=== PATIENT | male | born 1930 | race Caucasian/White ===

== ENCOUNTER 2016-04-03 16:28 | Inpatient (IN) | payer OTHER, MEDICARE ==
--- NOTE | 2016-04-03 17:19 | PDOC ---
History of Present Illness - General History Source: Patient Exam Limitations: No Limitations - History of Present Illness Initial Comments: 04/03/16 18:16 The patient is a 85 year old male brought via EMS, with a significant past medical history of HTN and AFIB, who presents to the emergency department with spontaneous nose bleed for the past 30 minutes. He notes that the bleeding has been persistent and mostly on his right nostril. He reports that her has been on Coumadin for the past 5 years but has never had a previous episode of bleeding. He states that 2 weeks ago his INR was 2. The patient denies chest pain, shortness of breath, headache and dizziness. Denies fever, chills, nausea, vomit, diarrhea and constipation. Denies dysuria, frequency, urgency and hematuria. Allergies: Penicillins Past surgical history: None reported Social history: No alcohol, tobacco or drug use reported <Shabbir Jolly - Last Filed: 04/03/16 21:52> - General History Source: Patient Exam Limitations: No Limitations - History of Present Illness Initial Comments: 04/08/16 07:35 CORRECTION TO SCRIBE NOTE: Left sided epistaxis, NOT right sided epistaxis. <Andriy Blunt - Last Filed: 04/08/16 07:35> - General Chief Complaint: Nasal Bleeding Stated Complaint: NOSEBLEED Time Seen by Provider: 04/03/16 16:33 Past History <Shabbir Jolly - Last Filed: 04/03/16 21:52> - Past Medical History Cardiac Disorders: Yes (atrial fibrillation) HTN: Yes - Psycho/Social/Smoking Cessation Hx Anxiety: No Suicidal Ideation: No Smoking History: Former smoker Have you smoked in the past 12 months: No If you are a former smoker, when did you quit?: 1970 Information on smoking cessation initiated: No Hx Alcohol Use: No Drug/Substance Use Hx: No Substance Use Type: None <Andriy Blunt - Last Filed: 04/08/16 07:35> - Past Medical History Allergies/Adverse Reactions: Allergies Allergy/AdvReac Type Severity Reaction Status Date / Time Penicillins Allergy Verified 04/03/16 16:42 Home Medications: Ambulatory Orders Atenolol [Tenormin -] 25 mg PO HS 04/03/16 Finasteride [Proscar] 5 mg PO DAILY 04/03/16 Losartan Potassium [Cozaar -] 50 mg PO BID 04/03/16 Pantoprazole Sodium [Protonix -] 40 mg PO HS 04/03/16 Tadalafil [Cialis] 2.5 mg PO DAILY 04/03/16 Tamsulosin HCl [Flomax] 0.4 mg PO BID 04/03/16 Atenolol 37.5 mg PO DAILY 04/04/16 Diltiazem Cd [Cardizem Cd -] 240 mg PO HS 04/04/16 Cephalexin Monohydrate [Keflex -] 500 mg PO TID #6 capsule 04/05/16 Warfarin Na [Coumadin -] 4 mg PO ONCE@1800 #2 tablet 04/05/16 Warfarin Na [Coumadin -] 5 mg PO DAILY #10 mg 04/05/16 Review of Systems - Review of Systems Able to Perform ROS?: Yes Comments:: 04/03/16 18:17 GENERAL/CONSTITUTIONAL: No fever or chills. No weakness. HEAD, EYES, EARS, NOSE AND THROAT: +Nose bleed. No change in vision. No ear pain or discharge. No sore throat. CARDIOVASCULAR: No chest pain or shortness of breath RESPIRATORY: No cough, wheezing, or hemoptysis. GASTROINTESTINAL: No nausea, vomiting, diarrhea or constipation. GENITOURINARY: No dysuria, frequency, or change in urination. MUSCULOSKELETAL: No joint or muscle swelling or pain. No neck or back pain. SKIN: No rash NEUROLOGIC: No headache, vertigo, loss of consciousness, or change in strength/ sensation. ENDOCRINE: No increased thirst. No abnormal weight change HEMATOLOGIC/LYMPHATIC: No anemia, easy bleeding, or history of blood clots. ALLERGIC/IMMUNOLOGIC: No hives or skin allergy. <Shabbir Jolly - Last Filed: 04/03/16 21:52> *Physical Exam - Vital Signs Last Vital Signs Temp Pulse Resp BP Pulse Ox 97.0 F L 99 H 18 161/107 100 04/03/16 16:28 04/03/16 16:28 04/03/16 16:28 04/03/16 16:28 04/03/16 16:28 - Physical Exam Comments: 04/03/16 18:17 GENERAL: Awake, alert, and fully oriented, in no acute distress HEAD: No signs of trauma, normocephalic, atraumatic EYES: PERRLA, EOMI, sclera anicteric, conjunctiva clear ENT: +Left anterior epistaxis, oropharynx with some mild oozing. Auricles normal inspection, hearing grossly normal, nares patent, oropharynx without exudates. NECK: Normal ROM, supple, no lymphadenopathy, JVD, or masses LUNGS: No distress, speaks full sentences, clear to auscultation bilaterally HEART: Regular rate and rhythm, normal S1 and S2, no murmurs, rubs or gallops, peripheral pulses normal and equal bilaterally. ABDOMEN: Soft, nontender, normoactive bowel sounds. No guarding, no rebound. No masses EXTREMITIES: Normal inspection, Normal range of motion, no edema. No clubbing or cyanosis. NEUROLOGICAL: Cranial nerves II through XII grossly intact. Normal speech, normal gait, no focal sensorimotor deficits SKIN: Warm, Dry, normal turgor, no rashes or lesions noted. <Shabbir Jolly - Last Filed: 04/03/16 21:52> - Vital Signs Last Vital Signs Temp Pulse Resp BP Pulse Ox 97.0 F L 99 H 18 161/107 100 04/03/16 16:28 04/03/16 16:28 04/03/16 16:28 04/03/16 16:28 04/03/16 16:28 <Andriy Blunt - Last Filed: 04/08/16 07:35> Heart Score/ECG Review #1 ECG reviewed & interpreted by me at: 21:35 04/03/16 21:45 atrial fibrillation 85 with occasional PVCs, TWI V4-V6, no std/medardo, TWI III, avF , QTC 430 msec <Andriy Blunt - Last Filed: 04/08/16 07:35> ED Treatment Course - LABORATORY CBC & Chemistry Diagram: 04/03/16 20:25 04/03/16 17:05 - ADDITIONAL ORDERS Additional order review: Laboratory Results 04/03/16 04/03/16 17:05 17:05 INR Cancelled PTT (Actin FS) Cancelled Sodium 140 Potassium 4.1 Chloride 106 Carbon Dioxide 27 Anion Gap 7 L BUN 24 H Creatinine 1.2 Creat Clearance w eGFR 57.82 Random Glucose 106 Calcium 9.6 Total Bilirubin 0.8 AST 29 ALT 32 Alkaline Phosphatase 81 Total Protein 7.0 Albumin 4.2 04/03/16 17:05 RBC 4.50 MCV 95.2 MCHC 33.8 RDW 13.8 MPV 9.3 Neutrophils % 68.6 Lymphocytes % 22.0 Monocytes % 8.6 Eosinophils % 0.4 Basophils % 0.4 <Shabbir Jolly - Last Filed: 04/03/16 21:52> - LABORATORY CBC & Chemistry Diagram: 04/05/16 10:15 04/04/16 06:20 <Andriy Blunt - Last Filed: 04/08/16 07:35> Medical Decision Making - Medical Decision Making 04/03/16 21:46 Dr. Wells was called regarding the patient at 9:46pm and a message was left. [phone] <Shabbir Jolly - Last Filed: 04/03/16 21:52> - Medical Decision Making 04/03/16 17:16 A portion of this note was written by my scribe, under my supervision. Vital Signs Temp Pulse Resp BP Pulse Ox 97.0 F L 99 H 18 161/107 100 04/03/16 16:28 04/03/16 16:28 04/03/16 16:28 04/03/16 16:28 04/03/16 16:28 85 year old male with past medical history of CVA, pacemaker, HTN, BPH, on coumadin p/w spontaneous nosebleed (from L nostril) 30 min prior to arrival. Denies trauma. Reports adherent to his coumadin. Denies cp/sob/lightheadedness. Appears to be a left anterior nasal epistaxis. Nasal packing with surgicel was attempted and left in place for 15 minutes. Unable to control the epistaxis. Rhino rocket was placed into the left nostril. Will reassess. 04/03/16 22:06 CBC, BMP 04/03/16 20:25 04/03/16 17:05 CMP Sodium 140 mmol/L (136-145) 04/03/16 17:05 Potassium 4.1 mmol/L (3.5-5.1) 04/03/16 17:05 Chloride 106 mmol/L (98-107) 04/03/16 17:05 Carbon Dioxide 27 mmol/L (21-32) 04/03/16 17:05 Anion Gap 7 (8-16) L 04/03/16 17:05 BUN 24 mg/dL (7-18) H 04/03/16 17:05 Creatinine 1.2 mg/dL (0.7-1.3) 04/03/16 17:05 Creat Clearance w eGFR 57.82 (>60) 04/03/16 17:05 Random Glucose 106 mg/dL (74-106) 04/03/16 17:05 Calcium 9.6 mg/dL (8.5-10.1) 04/03/16 17:05 Total Bilirubin 0.8 mg/dL (0.2-1.0) 04/03/16 17:05 AST 29 U/L (15-37) 04/03/16 17:05 ALT 32 U/L (12-78) 04/03/16 17:05 Alkaline Phosphatase 81 U/L (45-117) 04/03/16 17:05 Creatine Kinase 101 IU/L (39-308) 04/03/16 20:25 Troponin I < 0.02 ng/ml (0.00-0.05) 04/03/16 20:25 Total Protein 7.0 g/dl (6.4-8.2) 04/03/16 17:05 Albumin 4.2 g/dl (3.4-5.0) 04/03/16 17:05 Initially, the Hgb was 14.5. INR ~4. Initially had attempted surgicel but that have failed. A left-sided Rhino Rocket was placed. However, the patient continues to have nasal bleeding. Right Rhino Rocket was placed to assist with the bleeding. However, patient continued to ooze and bleed. Patient swallowed a significant amount of blood. The patient had the left Rhino Rocket removed and cautery was applied with silver nitrate with successful cessation of bleeding. The patient's hemoglobin was repeated and was noted to be 12.0. Patient had 2 large bowel movements with bright red blood which I suspect is from all the amount of bloody swallowed. Given that the patient had bled significantly, decision was made to admit the patient to the hospital. The patient has a history of afib, so will not stop coumadin but will hold for tonight. Empiric antibiotics ordered, azithromycin (keeping in mind the drug to drug interactions and pt's allergies to penicillin). Case was discussed with Dr. Monae who accepts the patient for med/surg observation. Case discussed in detail with admitting physician including history, physical exam and ancillary studies. Admitting physician has assumed care for the patient, will follow all pending diagnostics and will complete the evaluation and treatment. <Andriy Blunt - Last Filed: 04/08/16 07:35> *DC/Admit/Observation/Transfer - Attestations Scribe Attestion: 04/03/16 18:18 Documentation prepared by Shabbir Jolly, acting as medical billing associate for Andriy Blunt MD. <Shabbir Jolly - Last Filed: 04/03/16 21:52> - Discharge Dispostion Admit: Yes <Andriy Blunt - Last Filed: 04/08/16 07:35> Diagnosis at time of Disposition: Epistaxis - Discharge Dispostion Disposition: HOME Condition at time of disposition: Stable - Prescriptions - Referrals
[2016-04-03 17:22] LABS: BASOPHIL 0.4 % (0-2.0); EOSINOPHIL 0.4 % (0-4.5); MCH 32.2 pg (25.7-33.7); MCHC 33.8 g/dl (32.0-35.9); MEAN CELL VOLUME 95.2 fl (80-96); MEAN PLT VOLUME 9.3 fl (7.5-11.1); NEUTROPHILS 68.6 % (42.8-82.8); PLATELET COUNT 200 K/MM3 (134-434); RDW 13.8 % (11.9-15.9); WHITE BLOOD COUNT 10.4 K/mm3 (4.0-10.0)
[2016-04-03 18:00] LABS: ALBUMIN 4.2 g/dl (3.4-5.0); BILIRUBIN,TOTAL 0.8 mg/dL (0.2-1.0); CALCIUM 9.6 mg/dL (8.5-10.1); CREATININE 1.2 mg/dL (0.7-1.3)
[2016-04-03 18:22] LABS: INR 3.99 (0.82-1.09); PROTHROMBIN TIME (PATIENT) 45.1 SEC (9.98-11.88)
[2016-04-03 18:24] LABS: ACTIVATED PTT 42.2 SECONDS (26.9-34.4)
[2016-04-03] MEDS ORDERED: SILVER NITRATE 75% APPLIC STCK 1 PKT EACH TP ONE (18:26)
[2016-04-03] MEDS ORDERED: ACETAMINOPHEN 325 MG TABLET (FP) PO ONE (18:36)
[2016-04-03] MEDS ORDERED: SILVER NITRATE 75% APPLIC STCK 1 PKT EACH ONE (18:41)
[2016-04-03] MEDS ORDERED: ACETAMINOPHEN 325 MG TABLET (FP) ONE (18:42)
[2016-04-03] MEDS ORDERED: RANITIDINE HCL 150 MG TABLET (FP) PO ONE (19:22)
[2016-04-03] MEDS ORDERED: RANITIDINE HCL 150 MG TABLET (FP) ONE (19:36)
[2016-04-03 20:36] LABS: BASOPHIL 0.3 % (0-2.0); EOSINOPHIL 0.2 % (0-4.5); MCH 32.2 pg (25.7-33.7); MCHC 33.7 g/dl (32.0-35.9); MEAN CELL VOLUME 95.7 fl (80-96); NEUTROPHILS 79.8 % (42.8-82.8); PLATELET COUNT 170 K/MM3 (134-434); RDW 13.8 % (11.9-15.9); WHITE BLOOD COUNT 12.7 K/mm3 (4.0-10.0)
[2016-04-03] MEDS ORDERED: SODIUM CHLORIDE 500 ML IV STA (20:53)
[2016-04-03 21:07] LABS: TROPONIN I < 0.02 ng/ml (0.00-0.05)
[2016-04-03] MEDS ORDERED: FAMOTIDINE 20 MG/50 ML IVPB 50 ML IVPB ONE ×2 (21:15→21:31)
[2016-04-03] MEDS ORDERED: METOCLOPRAMIDE HCL INJECTION 10 MG/2 ML VIAL IVPB ONE (21:15)
[2016-04-03] MEDS ORDERED: METOCLOPRAMIDE HCL INJECTION 10 MG/2 ML VIAL ONE (21:31)
[2016-04-03] MEDS ORDERED: AZITHROMYCIN IVPB 500 MG in DEXTROSE 5%-WATER - 250 ML IVPB ONE (21:55)
[2016-04-03] MEDS ORDERED: AZITHROMYCIN IVPB 250 ML IVPB ONE (21:57)
--- NOTE | 2016-04-03 23:06 | HP ---
CHIEF COMPLAINT: Nose Bleed PCP: Dr. Chris Ramirez ([facility]) Dr. Kavon Carr ([facility]) HISTORY OF PRESENT ILLNESS: 85 year old male presented to the ED via EMS with the complaints of nose bleed since this afternoon at 3:30 pm. Patient mentioned he was driving home when he noticed bleeding from his nose suddenly and that it wouldn't stop bleeding. It was so profuse that he had to call 911. Patient has been on Warfarin since many years, 2 weeks ago his INR was around 2. Since admission, patient complaints of abdominal cramps with four episodes of diarrhoea, stool mixed with blood. It was associated with nausea but no vomiting. Denies urinary symptoms. Also complaints of frontal headache, on/off, started since admission. Denies dizziness, blurring of vision, LOC. Patient mentions he had a mechanical fall 2 weeks ago, had a steroid shot on his right shoulder a couple of days ago and has persistent pain over the left shoulder upon movement. In the ED, Nasal packing failed, cautery was tried followed by rhino rocket placement which helped to stop the bleeding. In the course of epistaxis, patient swallowed large volume of blood. Now, the patient is hemodynamically stable and the bleeding has stopped. ER course was notable for: (1) CBC, CMP (2) CXR (3) Nasal packing, cautery, Rhino rocket placement right nostril. Recent Travel: None PAST MEDICAL HISTORY: HTN and AFIB PAST SURGICAL HISTORY: Social History: Smoking: stopped smoking Alcohol: Drinks 1-2glass of wine every night. Drugs: No illicit drug use. Family History: Allergies Penicillins Allergy (Verified 04/03/16 16:42) HOME MEDICATIONS: Medication Instructions Recorded Atenolol [Tenormin -] 25 mg PO DAILY 04/03/16 Diltiazem [Cardizem -] 0 mg PO DAILY 04/03/16 Finasteride [Proscar] 0 mg PO DAILY 04/03/16 Losartan Potassium [Cozaar -] 0 mg PO DAILY 04/03/16 Pantoprazole Sodium [Protonix -] 40 mg PO DAILY 04/03/16 Tadalafil [Cialis] 2.5 mg PO DAILY 04/03/16 Tamsulosin HCl [Flomax] 0.4 mg PO DAILY 04/03/16 Warfarin Na [Coumadin] 5 mg PO DAILY 04/03/16 REVIEW OF SYSTEMS CONSTITUTIONAL: Absent: fever, chills, diaphoresis, generalized weakness, malaise, loss of appetite, weight change HEENT: Absent: rhinorrhea, nasal congestion, throat pain, throat swelling, difficulty swallowing, mouth swelling, ear pain, eye pain, visual changes CARDIOVASCULAR: Absent: chest pain, syncope, palpitations, irregular heart rate, lightheadedness , peripheral edema RESPIRATORY: Absent: cough, shortness of breath, dyspnea with exertion, orthopnea, wheezing, stridor, hemoptysis GASTROINTESTINAL: Present: Abdominal cramps + Absent: abdominal distension, nausea, vomiting, diarrhea, constipation, melena, hematochezia GENITOURINARY: Absent: dysuria, frequency, urgency, hesitancy, hematuria, flank pain, genital pain MUSCULOSKELETAL: Absent: myalgia, arthralgia, joint swelling, back pain, neck pain SKIN: Absent: rash, itching, pallor HEMATOLOGIC/IMMUNOLOGIC: Absent: easy bleeding, easy bruising, lymphadenopathy, frequent infections ENDOCRINE: Absent: unexplained weight gain, unexplained weight loss, heat intolerance, cold intolerance NEUROLOGIC: Absent: headache, focal weakness or paresthesias, dizziness, unsteady gait, seizure, mental status changes, bladder or bowel incontinence PSYCHIATRIC: Absent: anxiety, depression, suicidal or homicidal ideation, hallucinations. PHYSICAL EXAMINATION GENERAL: Patient is lying in bed comfortably in propped up position, Awake, alert, and fully oriented, in no acute distress. HEAD: Normal with no signs of trauma. EYES: EOM intact, no pallor or icterus. EARS, NOSE, THROAT: Ears normal, Rhino rocket placement on the right nostril. Moist mucous membranes. NECK: Normal range of motion,Supple. LUNGS: Breath sounds equal, clear to auscultation bilaterally. No wheezes, and no crackles. No accessory muscle use. HEART: Regular rate and rhythm, normal S1 and S2 without murmur, rub or gallop. ABDOMEN: Soft, tenderness over the suprapubic region +, not distended, normoactive bowel sounds, no guarding, no rebound, no masses. No hepatomegaly or splenomegaly. Per rectal exam: MUSCULOSKELETAL: Normal range of motion at all joints. No bony deformities or tenderness. No CVA tenderness. UPPER EXTREMITIES: 2+ pulses, warm, well-perfused. No cyanosis. No clubbing. Cap refill <2 seconds. No peripheral edema. LOWER EXTREMITIES: 2+ pulses, warm, well-perfused. No calf tenderness. No peripheral edema. NEUROLOGICAL: Cranial nerves II-XII intact. Normal speech. Normal gait. PSYCHIATRIC: Cooperative. Good eye contact. Appropriate mood and affect. SKIN: Warm, dry, normal turgor, multiple ecchymotic areas over the right upper extremities. ASSESSMENT/PLAN: 85 year old male with significant past medical history of HTN, atrial fibrillation presented to the ED via EMS with the complaints of nose bleed since this afternoon at 3:30 pm. # Epistaxis Most likely secondary to drug interaction of warfarin with recent steroid shot over his right shoulder profuse epistaxis, H/H dropped from 14.5/42.9----->12/35.5. Patient asymptomatic In the ED, Nasal packing failed, had to perform nasal cautery followed by rhino rocket placement Patient admitted in Med-surg NPO to rule out GI bleed IV NS @ 42mls/hr On IV Protonix 40mg Daily Type and screen ordered CBC every 6hours. Patient gets rash/swelling with penicillin use, had used 60 years ago as per the patient. Hence, empirically treating with Vancomycin since Rhino rocket placement was done on 04/03/2016 and will be continued for a couple of days. Hold coumadin Resume home meds Zofran PRN for nausea # Atrial fibrillation-rate controlled Warfarin on hold # Hypertension-stable Continue home meds Monitor Vitals # FEN IV NS @ 42mls/hr Electrolytes to be repeated in the am NPO # Prophylaxis For DVT- On SCD's, Heparin not used due to risk on increase in bleeding For GI- On Protonix Illness, Investigation and Plan of care explained to the patient. He verbalized understanding. Case discussed with Dr. Monae. Visit type - Emergency Visit Emergency Visit: Yes ED Registration Date: 04/03/16 Care time: The patient presented to the Emergency Department on the above date and was hospitalized for further evaluation of their emergent condition. - New Patient This patient is new to me today: Yes Date on this admission: 04/04/16 - Critical Care Critical Care patient: No
[2016-04-03] MEDS ORDERED: ONDANSETRON 4 MG/2 ML VIAL IVPB PRN (23:44)
[2016-04-03] MEDS ORDERED: VANCOMYCIN 1 GRAM (PRE-DOCKED) 250 ML IVPB ONE (23:45)
[2016-04-04] MEDS ORDERED: VANCOMYCIN 1 GRAM (PRE-DOCKED) 250 ML IVPB ONE (00:11)
--- NOTE | 2016-04-04 03:46 | PN ---
[id number] the patient. I reviewed the resident's note and discussed the case with the resident. I agree with the resident's findings and plan as documented. SUBJECTIVE: 85 yo M presents with spontaneous nosebleed while driving at 3:30pm. Patient denies trauma and dizziness. 2 days prior had a steroid shot for arm pain s/p fall. Patient denies LOC but has severe ecchymosis on the posterior aspect of the arm going down to the elbow. On eval in ED had profuse epistaxis resistant to rhinal rocket and had to be cauterized. Patient with profuse blood in BM and admission recommended obs due to supratherapeutic INR and to monitor overnight. Patient also reports an associated nausea, diffuse lower abdominal pain rated at an 8/10 and a frontal headache rated a 6/10. The patient reports hematochezia s/p epistaxis. PMHx: AFIB, HTN, BPH Allergies: Penicillin Past surgical history: None reported Social history: No alcohol, tobacco or drug use reported OBJECTIVE: Last Vital Signs Temp Pulse Resp BP Pulse Ox 97.0 F L 99 H 18 161/107 100 04/03/16 16:28 04/03/16 16:28 04/03/16 16:28 04/03/16 16:28 04/03/16 16:28 GENERAL: Awake, alert, and fully oriented, in no acute distress HEENT: Atraumatic. PERRLA, EOMI. Moist mucosa. No JVD. Right nasal rhinal rocket with blood. No active bleeding at this time. Dry blood around left nare. LUNGS: No distress, speaks full sentences, clear to auscultation bilaterally HEART: Regular rate and rhythm, normal S1 and S2, no murmurs, rubs or gallops, peripheral pulses normal and equal bilaterally. ABDOMEN: Soft, nontender, normoactive bowel sounds. No guarding, no rebound. No masses EXTREMITIES: Normal inspection, Normal range of motion, no edema. No clubbing or cyanosis. NEUROLOGICAL: Cranial nerves II through XII grossly intact. Normal speech, normal gait, no focal sensorimotor deficits SKIN: Warm, Dry, normal turgor, no rashes or lesions noted. CBCD WBC 12.7 K/mm3 (4.0-10.0) H 04/03/16 20:25 RBC 3.71 M/mm3 (4.00-5.60) L 04/03/16 20:25 Hgb 12.0 GM/dL (11.7-16.9) D 04/03/16 20:25 Hct 35.5 % (35.4-49) D 04/03/16 20:25 MCV 95.7 fl (80-96) 04/03/16 20:25 MCHC 33.7 g/dl (32.0-35.9) 04/03/16 20:25 RDW 13.8 % (11.9-15.9) 04/03/16 20:25 Plt Count 170 K/MM3 (134-434) 04/03/16 20:25 MPV 9.0 fl (7.5-11.1) 04/03/16 20:25 CMP Sodium 140 mmol/L (136-145) 04/03/16 17:05 Potassium 4.1 mmol/L (3.5-5.1) 04/03/16 17:05 Chloride 106 mmol/L (98-107) 04/03/16 17:05 Carbon Dioxide 27 mmol/L (21-32) 04/03/16 17:05 Anion Gap 7 (8-16) L 04/03/16 17:05 BUN 24 mg/dL (7-18) H 04/03/16 17:05 Creatinine 1.2 mg/dL (0.7-1.3) 04/03/16 17:05 Creat Clearance w eGFR 57.82 (>60) 04/03/16 17:05 Calcium 9.6 mg/dL (8.5-10.1) 04/03/16 17:05 Total Bilirubin 0.8 mg/dL (0.2-1.0) 04/03/16 17:05 AST 29 U/L (15-37) 04/03/16 17:05 ALT 32 U/L (12-78) 04/03/16 17:05 Alkaline Phosphatase 81 U/L (45-117) 04/03/16 17:05 Total Protein 7.0 g/dl (6.4-8.2) 04/03/16 17:05 Albumin 4.2 g/dl (3.4-5.0) 04/03/16 17:05 ASSESSMENT AND PLAN: 1.) Epistaxis with supratherapeutic INR -Hold coumadin -Repeat CBC 6 hours -Type and strain -Consider blood trans if hemoglobin less than 7 Documentation prepared by Mayra Salmeron, acting as medical artist for Amelia Monae M.D. <Amelia Monae - Last Filed: 04/17/16 20:57> Teaching Attending Note Name of Resident: Veronica Melendez
[2016-04-04] MEDS: SODIUM CHLORIDE 1,000 ML IV SCH (04:29)
--- NOTE | 2016-04-04 08:20 | PN ---
Progress Note (short form) - Note Progress Note: ID Full note dictated and discussed with his PMD Dr Perez at [facility] Selected Entries 04/03/16 04/04/16 16:28 07:00 Temperature 97.0 F L Pulse Rate 99 H Pulse Rate [ 115 H Right] Blood Pressure 155/96 [Left Arm] O2 Sat by Pulse 99 Oximetry (%) Weight 165 lb Epistaxis Echymosis Right upper Ext Laboratory Tests 04/03/16 04/03/16 04/03/16 17:05 17:50 20:25 WBC 12.7 H RBC 3.71 L Plt Count 170 INR 3.99 H BUN 24 H Creatinine 1.2 Creat Clearance w eGFR 57.82 Assessment Excessive anticoagulation Atrial fibrillation Epistaxis Plan Prophylactic Keflex 500mg bid 48 hours Kiki CHANDRA Problem List - Problems (1) Epistaxis Code(s): R04.0 - EPISTAXIS (2) Anticoagulation goal of inr 3.0 to 4.0 Code(s): Z51.81 - ENCOUNTER FOR THERAPEUTIC DRUG LEVEL MONITORING Z79.01 - LONGTERM (CURRENT) USE OF ANTICOAGULANTS
[2016-04-04] MEDS ORDERED: TAMSULOSIN HCL 0.4 MG CAP.ER.24H (FP) PO SCH (08:30)
--- NOTE | 2016-04-04 08:49 | PN ---
Teaching Attending Note Name of Resident: Eliza Michael ATTENDING PHYSICIAN STATEMENT I saw and evaluated the patient. I reviewed the resident's note and discussed the case with the resident. I agree with the resident's findings and plan as documented. SUBJECTIVE: Presented for Epistaxis , No further bleed. otherwise comfortable. OBJECTIVE: Vital Signs Temperature 97.0 F L 04/03/16 16:28 Pulse Rate 115 H 04/04/16 07:00 Respiratory Rate 18 04/03/16 16:28 Blood Pressure 155/96 04/04/16 07:00 O2 Sat by Pulse Oximetry (%) 99 04/04/16 07:00 GENERAL: The patient is awake, alert, and fully oriented, in no acute distress. HEAD: Normal with no signs of trauma. EYES: PERRL, extraocular movements intact, right eye positive for blood shot. left eye conjunctiva clear. ENT: Ears normal, nares patent, oropharynx clear without exudates, moist mucous membranes. NECK: Trachea midline, full range of motion, supple. LUNGS: Breath sounds equal, clear to auscultation bilaterally, no wheezes, no crackles, no accessory muscle use. HEART: irregularly irregular with rat eof 115 , S1, S2 positive, rub or gallop. ABDOMEN: Soft, nontender, nondistended, normoactive bowel sounds, no hepatosplenomegaly, no masses. EXTREMITIES: 2+ pulses, warm, well-perfused, no edema. Right shoulder large bruise due to his fall NEUROLOGICAL: Cranial nerves II through XII grossly intact. Normal speech. PSYCH: Normal mood, normal affect. SKIN: Warm, dry, normal turgor, no rashes or lesions noted CBCD WBC 11.8 K/mm3 (4.0-10.0) H 04/04/16 15:00 RBC 3.64 M/mm3 (4.00-5.60) L 04/04/16 15:00 Hgb 11.8 GM/dL (11.7-16.9) 04/04/16 15:00 Hct 34.9 % (35.4-49) L 04/04/16 15:00 MCV 95.8 fl (80-96) 04/04/16 15:00 MCHC 33.9 g/dl (32.0-35.9) 04/04/16 15:00 RDW 13.9 % (11.9-15.9) 04/04/16 15:00 Plt Count 154 K/MM3 (134-434) 04/04/16 15:00 MPV 9.3 fl (7.5-11.1) 04/04/16 15:00 CMP Sodium 143 mmol/L (136-145) 04/04/16 06:20 Potassium 4.1 mmol/L (3.5-5.1) 04/04/16 06:20 Chloride 114 mmol/L (98-107) H 04/04/16 06:20 Carbon Dioxide 21 mmol/L (21-32) D 04/04/16 06:20 Anion Gap 8 (8-16) 04/04/16 06:20 BUN 41 mg/dL (7-18) H D 04/04/16 06:20 Creatinine 0.9 mg/dL (0.7-1.3) D 04/04/16 06:20 Creat Clearance w eGFR > 60 (>60) 04/04/16 06:20 Random Glucose 90 mg/dL (74-106) 04/04/16 06:20 Calcium 8.3 mg/dL (8.5-10.1) L 04/04/16 06:20 Total Bilirubin 0.7 mg/dL (0.2-1.0) 04/04/16 06:20 AST 20 U/L (15-37) D 04/04/16 06:20 ALT 23 U/L (12-78) D 04/04/16 06:20 Alkaline Phosphatase 62 U/L (45-117) D 04/04/16 06:20 Total Protein 5.2 g/dl (6.4-8.2) L D 04/04/16 06:20 Albumin 3.1 g/dl (3.4-5.0) L D 04/04/16 06:20 CARDIAC ENZYMES Creatine Kinase 101 IU/L (39-308) 04/03/16 20:25 Troponin I < 0.02 ng/ml (0.00-0.05) 04/03/16 20:25 Current Medications Generic Name Dose Route Start Last Admin Trade Name Freq PRN Reason Stop Dose Admin Atenolol 25 mg 04/04/16 10:00 04/04/16 11:07 Tenormin - PO 25 mg DAILY MARILYN Administration Cephalexin HCl 500 mg 04/04/16 10:30 04/04/16 18:30 Keflex - PO 04/05/16 22:01 Not Given TID MARILYN Diltiazem HCl 30 mg 04/04/16 10:00 04/04/16 11:05 Cardizem - PO 30 mg DAILY MARILYN Administration Finasteride 5 mg 04/04/16 10:00 04/04/16 11:06 Proscar - PO 5 mg DAILY MARILYN Administration Vancomycin HCl 250 mls @ 250 mls/hr 04/04/16 10:00 Vancomycin (Pre-Docked) IVPB DAILY [facility] Sodium Chloride 1,000 mls @ 42 mls/hr 04/04/16 04:15 04/04/16 04:29 Normal Saline - IV 42 mls/hr ASDIR MARILYN Administration Losartan Potassium 50 mg 04/04/16 10:00 04/04/16 11:06 Cozaar - PO 50 mg DAILY MARILYN Administration Non-Formulary Medication 2.5 mg 04/04/16 10:00 Tadalafil [Cialis] PO DAILY [facility] Ondansetron HCl 4 mg 04/03/16 23:44 Zofran Injection IVPB Q4H PRN NAUSEA AND/OR VOMITING Tamsulosin HCl 0.4 mg 04/04/16 11:45 04/04/16 12:34 Flomax - PO 0.4 mg DAILY@0830 [facility] Administration Medication Instructions Recorded Atenolol [Tenormin -] 25 mg PO HS 04/03/16 Finasteride [Proscar] 5 mg PO DAILY 04/03/16 Losartan Potassium [Cozaar -] 50 mg PO BID 04/03/16 Pantoprazole Sodium [Protonix -] 40 mg PO HS 04/03/16 Tadalafil [Cialis] 2.5 mg PO DAILY 04/03/16 Tamsulosin HCl [Flomax] 0.4 mg PO BID 04/03/16 Warfarin Na [Coumadin] 5 mg PO DAILY 04/03/16 Atenolol 37.5 mg PO DAILY 04/04/16 Diltiazem Cd [Cardizem Cd -] 240 mg PO HS 04/04/16 S/P fall:CT head, no acute bleeding X ray right shoulder and humerus : No fracture ASSESSMENT AND PLAN: 85 year old male with significant past medical history of HTN, atrial fibrillation presented to the ED via EMS with the complaints of nose bleed since yesterday afternoon. # Acute Epistaxis while driving. ENT consult Dr.Tom Otero . -H/H dropped from 14.5/42.9----->11 prophylactic Keflex 500 mg PO BID as per ID # Anemia with Tarry stool most likely due to swallowing his own blood. GI consult Atrial fibrillation-rate controlled on Cardizam continue .Warfarin on hold since supratherapeutic INR Hypertension Continue home meds DVT Prophylaxis: warfarin supratherapeutic INR GI PPX On Protonix
[2016-04-04 08:58] LABS: ALBUMIN 3.1 g/dl (3.4-5.0); ANION GAP 8 (8-16); CALCIUM 8.3 mg/dL (8.5-10.1); CO2 21 mmol/L (21-32); CREATININE 0.9 mg/dL (0.7-1.3); GLUCOSE,RANDOM 90 mg/dL (74-106); SGOT/AST 20 U/L (15-37); SGPT/ALT 23 U/L (12-78)
[2016-04-04 09:00] LABS: ALK PHOS 62 U/L (45-117); BILIRUBIN,TOTAL 0.7 mg/dL (0.2-1.0); TOT PROT 5.2 g/dl (6.4-8.2)
[2016-04-04 09:08] LABS: ACTIVATED PTT 44.9 SECONDS (26.9-34.4)
--- NOTE | 2016-04-04 09:26 | CONS ---
DATE OF CONSULTATION: DATE OF DICTATION: 04/04/2016 This is an 85-year-old male admitted to the emergency room with chief complaint of severe epistaxis which began yesterday afternoon while driving home and was spontaneous. Noted is the fact that the patient has a history of atrial fibrillation and a stroke in the past and has been anticoagulated, with most recent INR around 2; however, his INR here was found to be 4. Several failed efforts were made to control the epistaxis, and ultimately he required a Rhino Rocket placement to help control the bleeding. Because of this, I was asked to see him regarding antibiotics prophylactically, but given a remote history of penicillin allergy with a rash, he was given a dose of vancomycin apparently in the emergency room. He has no fever, shortness of breath, and currently appears quite stable. 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 He saw his primary medical doctor and was referred to an orthopedist several days ago, who apparently injected the right shoulder for inflammation and improvement of pain. He has had no other acute symptoms, denies any headaches, visual complaints, abdominal pain. Mention is made in the emergency room of some abdominal cramping with stool mixed with blood, but currently he does not appear to have any evidence of GI bleeding overtly. PAST MEDICAL HISTORY: Includes BPH, hypertension, atrial fibrillation, status post CVA. HOME MEDICATIONS: Atenolol, diltiazem, Proscar, Cozaar, Protonix, Cialis, Flomax, Coumadin. ALLERGIES: PENICILLIN with a rash 60 years ago. FAMILY HISTORY: Reviewed and noncontributory. SOCIAL HISTORY: Former smoker. 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 No alcohol use. REVIEW OF SYSTEMS: Respiratory: No cough, shortness of breath. Cardiac: No chest pain, palpitations, syncope. Gastroenterology: No abdominal pain currently. No diarrhea, vomiting. Genitourinary: No dysuria, hematuria, urinary frequency. PHYSICAL EXAMINATION: General: He was a pleasant, alert male in no acute distress. Vital Signs: His temperature was 97, pulse 115, blood pressure 155/96, respirations 18. HEENT: Revealed no obvious overt epistaxis at this time. Neck: Supple. Lungs: Clear to P&A. Heart: S1, S2, irregularly irregular rhythm without murmur. Abdomen: Soft, nontender, without hepatosplenomegaly. Extremities: Without clubbing, cyanosis, or edema. Extensive ecchymosis of the right outer upper extremity. LABORATORY: The white count was 12.7, hemoglobin 12, originally 14.5. Platelets of 170, INR of 3.99. BUN 24, creatinine 1.2. Liver enzymes within normal limit. Chest x-ray shows no evidence of acute infiltrate, questionable right perihilar noncalcified nodular opacity. PROBLEM LIST: Severe ecchymosis, contusions to the right arm. ASSESSMENT: Severe epistaxis in the setting of excessive anticoagulation with Coumadin status post placement of a Rhino Rocket for control of epistaxis. Requested that I see him for prophylactic antibiotic. Given 1 g of vancomycin by the emergency room. History of atrial fibrillation. History of cerebrovascular accident in the past, benign prostatic hypertrophy. PLAN: The patient to be admitted. I contacted his primary medical doctor, , as a courtesy to him know that his patient was here. Coumadin has been held. He will be given Keflex 500 mg p.o. b.i.d. for 48 hours for prophylaxis of severe epistaxis. BIJAL JOSUE M.D. [id number]
[2016-04-04 09:54] LABS: INR 4.41 (0.82-1.09)
[2016-04-04] MEDS ORDERED: PANTOPRAZOLE SODIUM 100 ML IVPB SCH (10:00)
[2016-04-04] MEDS ORDERED: dilTIAZem HCL 30 MG TABLET (FP) PO SCH (10:00)
[2016-04-04] MEDS ORDERED: CEPHALEXIN MONOHYDRATE 500 MG CAPSULE (UD) PO SCH (10:00)
[2016-04-04] MEDS: FINASTERIDE 5 MG TABLET (FP) PO SCH (11:06)
[2016-04-04] MEDS: LOSARTAN POTASSIUM 50 MG TABLET (FP) PO SCH (11:06)
[2016-04-04] MEDS: ATENOLOL 25 MG TABLET (FP) PO SCH (11:07)
[2016-04-04] MEDS: CEPHALEXIN MONOHYDRATE 500 MG CAPSULE (UD) PO SCH ×3 (11:13→22:18)
[2016-04-04] MEDS: TAMSULOSIN HCL 0.4 MG CAP.ER.24H (FP) PO SCH (12:34)
[2016-04-04 15:22] LABS: BASOPHIL 0.2 % (0-2.0); MCH 32.5 pg (25.7-33.7); MCHC 33.9 g/dl (32.0-35.9); MEAN CELL VOLUME 95.8 fl (80-96); MEAN PLT VOLUME 9.3 fl (7.5-11.1); NEUTROPHILS 73.9 % (42.8-82.8); PLATELET COUNT 154 K/MM3 (134-434); RDW 13.9 % (11.9-15.9); WHITE BLOOD COUNT 11.8 K/mm3 (4.0-10.0)
--- NOTE | 2016-04-04 15:32 | EKG ---
Test Reason : Blood Pressure : / mmHG Vent. Rate : 083 BPM Atrial Rate : 202 BPM P-R Int : 000 ms QRS Dur : 088 ms QT Int : 366 ms P-R-T Axes : 000 049 -33 degrees QTc Int : 430 ms ATRIAL FIBRILLATION WITH OCCASIONAL ventricular-paced complexes T WAVE ABNORMALITY, CONSIDER LATERAL ISCHEMIA ABNORMAL ECG WHEN COMPARED WITH ECG OF 03-APR-2016 21:31, ELECTRONIC VENTRICULAR PACEMAKER HAS REPLACED ATRIAL FIBRILLATION Confirmed by YAN CHANDRA, KHANG ([id number]) on 04/04/2016 3:31:37 PM Referred By: Confirmed By:KHANG HEREDIA MD
[2016-04-04 15:58] LABS: PROTHROMBIN TIME (PATIENT) 47.4 SEC (9.98-11.88)
--- NOTE | 2016-04-04 16:46 | PN ---
Physical Exam: SUBJECTIVE: Patient seen and examined. OBJECTIVE: Vital Signs Period Temp Pulse Resp BP Sys/Arevalo Pulse Ox Last 24 Hr 98.7 F 112-115 20 155-163/91-96 99 GENERAL: The patient is awake, alert, and fully oriented, in no acute distress. HEAD: Normal with no signs of trauma. EYES: PERRL, extraocular movements intact, sclera anicteric, conjunctiva clear. No ptosis. ENT: Ears normal, nares patent, oropharynx clear without exudates, moist mucous membranes. NECK: Trachea midline, full range of motion, supple. LUNGS: Breath sounds equal, clear to auscultation bilaterally, no wheezes, no crackles, no accessory muscle use. HEART: Regular rate and rhythm, S1, S2 without murmur, rub or gallop. ABDOMEN: Soft, nontender, nondistended, normoactive bowel sounds, no guarding, no rebound, no hepatosplenomegaly, no masses. EXTREMITIES: 2+ pulses, warm, well-perfused, no edema. NEUROLOGICAL: Cranial nerves II through XII grossly intact. Normal speech, gait not observed. PSYCH: Normal mood, normal affect. SKIN: Warm, dry, normal turgor, no rashes or lesions noted Laboratory Results - last 24 hr 04/04/16 04/04/16 04/04/16 06:20 06:20 08:59 WBC RBC Hgb Hct MCV MCHC RDW Plt Count MPV Neutrophils % Lymphocytes % Monocytes % Eosinophils % Basophils % INR 4.41 H* PTT (Actin FS) 44.9 H Sodium 143 Potassium 4.1 Chloride 114 H Carbon Dioxide 21 D Anion Gap 8 BUN 41 H D Creatinine 0.9 D Creat Clearance w eGFR > 60 Random Glucose 90 Calcium 8.3 L Total Bilirubin 0.7 AST 20 D ALT 23 D Alkaline Phosphatase 62 D Total Protein 5.2 L D Albumin 3.1 L D Stool Occult Blood Positive 04/04/16 15:00 WBC 11.8 H RBC 3.64 L Hgb 11.8 Hct 34.9 L MCV 95.8 MCHC 33.9 RDW 13.9 Plt Count 154 MPV 9.3 Neutrophils % 73.9 Lymphocytes % 15.1 D Monocytes % 10.8 H Eosinophils % 0.0 D Basophils % 0.2 INR PTT (Actin FS) Sodium Potassium Chloride Carbon Dioxide Anion Gap BUN Creatinine Creat Clearance w eGFR Random Glucose Calcium Total Bilirubin AST ALT Alkaline Phosphatase Total Protein Albumin Stool Occult Blood Active Medications Generic Name Dose Route Start Last Admin Trade Name Freq PRN Reason Stop Dose Admin Atenolol 25 mg 04/04/16 10:00 04/04/16 11:07 Tenormin - PO 25 mg DAILY MARILYN Administration Cephalexin HCl 500 mg 04/04/16 10:30 04/04/16 11:13 Keflex - PO 04/05/16 22:01 500 mg TID MARILYN Administration Diltiazem HCl 30 mg 04/04/16 10:00 04/04/16 11:05 Cardizem - PO 30 mg DAILY MARILYN Administration Finasteride 5 mg 04/04/16 10:00 04/04/16 11:06 Proscar - PO 5 mg DAILY MARILYN Administration Vancomycin HCl 250 mls @ 250 mls/hr 04/04/16 10:00 Vancomycin (Pre-Docked) IVPB DAILY [facility] Sodium Chloride 1,000 mls @ 42 mls/hr 04/04/16 04:15 04/04/16 04:29 Normal Saline - IV 42 mls/hr ASDIR MARILYN Administration Losartan Potassium 50 mg 04/04/16 10:00 04/04/16 11:06 Cozaar - PO 50 mg DAILY MARILYN Administration Non-Formulary Medication 2.5 mg 04/04/16 10:00 Tadalafil [Cialis] PO DAILY [facility] Ondansetron HCl 4 mg 04/03/16 23:44 Zofran Injection IVPB Q4H PRN NAUSEA AND/OR VOMITING Tamsulosin HCl 0.4 mg 04/04/16 11:45 04/04/16 12:34 Flomax - PO 0.4 mg DAILY@0830 [facility] Administration ASSESSMENT/PLAN: 85 year old male with significant past medical history of HTN, atrial fibrillation presented to the ED via EMS with the complaints of nose bleed since yesterday afternoon. Epistaxis -most likely secondary to drug interaction between steroid and warfarin -H/H dropped from 14.5/42.9----->11 -In the ED bert duvall placed -Patient admitted in Med-surg -NPO to rule out GI bleed -FOBT positive -GI consulted -IV NS @ 42mls/hr -continue IV Protonix 40mg Daily -Type and screen -CBC every 6 hours -Hold Coumadin -INR ordered -Zofran PRN for nausea -Keflex 500 mg PO BID as per ID S/P fall: -CT head, no acute bleeding -X ray right shoulder and humerus pending Atrial fibrillation-rate controlled -Warfarin on hold Hypertension -Continue home meds FEN -IV NS @ 42mls/hr -Electrolytes to be repeated in the am -NPO DVT Prophylaxis -On SCD's GI PPX -On Protonix Disposition Admission to med surg Problem List - Problems (1) Epistaxis Code(s): R04.0 - EPISTAXIS Visit type - Emergency Visit Emergency Visit: Yes ED Registration Date: 04/03/16 Care time: The patient presented to the Emergency Department on the above date and was hospitalized for further evaluation of their emergent condition. - New Patient This patient is new to me today: Yes Date on this admission: 04/04/16 - Critical Care Critical Care patient: No - Discharge Referral Referred to [facility] No
[2016-04-04 16:48] LABS: INR 4.19 (0.82-1.09)
[2016-04-04 17:53] VITALS: BMI 24.6
--- NOTE | 2016-04-04 20:00 | MSN ---
Admitting History and Physical - Admission Chief Complaint: Nose bleed History of Present Illness: 85 y/o male with a pmhx of atrial fibrillation with pacemaker, cva 5 years ago, HTN and BPH who presnts with nose bleed yesterday that last ed about 45 minutes. Patient states he was driving and he was under no stress when the episode started. He has never had anything like this before. He is on coumadin and normally has an INR of around 2. Since the episode of nose bleed he has had five episodes of dark, maroon colored diarrhea. He was seen by ID and was given one dose of vancomycin 1g and keflex 500mg PO BID for 48 hours as prophylaxis for epistaxis. Patient received rhino rocket 4.5 which stopped bleeding. He denies chest pain, lightheaded, back pain, dysuria, new onset weakness and fatigue. 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) Cardiovascular: Yes: AFIB, HTN Renal/: Yes: BPH - Past Surgical History Past Surgical History: Yes: Joint Replacement (Hip), Permanent Pacemaker - Smoking History Smoking history: Former smoker Have you smoked in the past 12 months: No If you are a former smoker, when did you quit?: 1970 - Alcohol/Substance Use Hx Alcohol Use: No Home Medications - Allergies Allergies/Adverse Reactions: Allergies Allergy/AdvReac Type Severity Reaction Status Date / Time Penicillins Allergy Verified 04/03/16 16:42 - Home Medications Home Medications: Ambulatory Orders Atenolol [Tenormin -] 25 mg PO HS 04/03/16 Finasteride [Proscar] 5 mg PO DAILY 04/03/16 Losartan Potassium [Cozaar -] 50 mg PO BID 04/03/16 Pantoprazole Sodium [Protonix -] 40 mg PO HS 04/03/16 Tadalafil [Cialis] 2.5 mg PO DAILY 04/03/16 Tamsulosin HCl [Flomax] 0.4 mg PO BID 04/03/16 Warfarin Na [Coumadin] 5 mg PO DAILY 04/03/16 Atenolol 37.5 mg PO DAILY 04/04/16 Diltiazem Cd [Cardizem Cd -] 240 mg PO HS 04/04/16 Review of Systems - Review of Systems Constitutional: reports: No Symptoms Eyes: reports: No Symptoms HENT: reports: Epistaxis Cardiovascular: reports: Palpitations (atrial fibrillation) Respiratory: reports: No Symptoms Gastrointestinal: reports: Diarrhea, Nausea, Rectal Bleeding Genitourinary: reports: Frequency Integumentary: reports: No Symptoms Neurological: reports: Headache, Pre-Existing Deficit (unsteady gate from cva) Endocrine: reports: No Symptoms Psychiatric: reports: Depression (states he is slight depressed because he cannto do the things he used to be able to do) Physical Examination Vital Signs: Vital Signs Temperature 97.9 F 04/04/16 17:42 Pulse Rate 110 H 04/04/16 17:42 Respiratory Rate 18 04/04/16 17:42 Blood Pressure 143/104 04/04/16 17:42 O2 Sat by Pulse Oximetry (%) 100 04/04/16 17:42 Constitutional: Yes: Well Nourished, No Distress, Calm Eyes: Yes: WNL, Conjunctiva Clear, EOM Intact HENT: Yes: WNL, Atraumatic, Normocephalic Neck: Yes: WNL, Supple, Trachea Midline Cardiovascular: Yes: Pulse Irregular Respiratory: Yes: WNL, Regular, CTA Bilaterally Gastrointestinal: Yes: WNL, Normal Bowel Sounds, Soft, Rectal Bleeding ...Rectal Exam: Yes: Guaiac Positive Musculoskeletal: Yes: WNL Extremities: Yes: WNL Edema: No Neurological: Yes: WNL, Alert, Oriented, Cran Nerves II-XII Intact, Pre- Existing Deficit (Unsteady gate) ...Motor Strength: WNL Psychiatric: Yes: WNL, Alert, Oriented Labs: CBC, BMP 04/04/16 15:00 04/04/16 06:20 Imaging - Results Chest X-ray: Report Reviewed, Image Reviewed Cat Scan: Report Reviewed, Image Reviewed EKG: Report Reviewed, Image Reviewed Assessment/Plan 85 year old male with significant past medical history of HTN, atrial fibrillation, cva and BPH presented to the ED via EMS with the complaints of nose bleed since yesterday afternoon at 3:30 pm that lasted for about 45 minutes. # Epistaxis H/H dropped from 14.5/42.9----->12/35.5. INR 3.99 --->4.41--->4.19. Patient asymptomatic In the ED, Nasal packing failed, had to perform nasal cautery followed by rhino rocket placement Patient admitted in Med-surg NPO to rule out GI bleed IV NS @ 42mls/hr On IV Protonix 40mg Daily Type and screen ordered CBC every 6hours. Patient gets rash/swelling with penicillin use, had used 60 years ago as per the patient. Hence, empirically treating with Vancomycin since Rhino rocket placement was done on 04/03/2016 and will be continued for a couple of days. Keflex 500mg PO BID for 48 hours. Hold coumadin Resume home meds Zofran PRN for nausea ENT consult # Atrial fibrillation-rate controlled Warfarin on hold # Hypertension-stable Continue home meds Monitor Vitals # FEN IV NS @ 42mls/hr Electrolytes to be repeated in the am NPO # Prophylaxis For DVT- On SCD's, Heparin not used due to risk on increase in bleeding For GI- On Protonix #R/O upper GI bleed GI consult
[2016-04-04] MEDS ORDERED: ACETAMINOPHEN 325 MG TABLET (FP) PO ONE (20:23)
[2016-04-04 22:00] LABS: MCH 32.2 pg (25.7-33.7); MCHC 33.8 g/dl (32.0-35.9); MEAN CELL VOLUME 95.2 fl (80-96); MEAN PLT VOLUME 9.3 fl (7.5-11.1); PLATELET COUNT 130 K/MM3 (134-434); WHITE BLOOD COUNT 10.8 K/mm3 (4.0-10.0)
--- NOTE | 2016-04-04 22:34 | CON.GI ---
Consult Consult Specialty:: Gastroenterology Reason for Consultation:: epistaxsis - History of Present Illness Chief Complaint: nosebleed History of Present Illness: 85 year old male with afib and on coumadin. He developed severe epistaxsis and swallow a large amount of blood prior to the ER admission and also in the ER as they tried to stoop the bleeding with packing of the nares. When this failed his nares was cauterized with silver nitrate. In addition to this his INR before and during the bleed was supratherapuetic. It was over 5! 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) Cardio/Vascular: Yes: AFIB, HTN Pulmonary: No: Asthma, Bronchitis, Cancer, COPD, O2 Dependent, Pneumonia, Previously Intubated, Pulmonary Embolus, Pulmonary Fibrosis, Sleep Apnea, Other Gastrointestinal: No: Ascites, Cancer, Constipation, Crohn's Disease, Diverticulitis, Diverticulosis, Esophageal Varices, Gastritis, GERD, GI Bleed, Hemorrhoids, Hiatal Hernia, Inflamatory Bowel Disease, Irritable Bowel Disease, Pancreatitis, Peptic Ulcer Disease, Ulcerative Colitis, Other Hepatobiliary: No: Cirrhosis, Cholelithiasis, Cholecystitis, Choledocholithiasis , Hepatitis A, Hepatitis B, Hepatitis C, Other Renal/: Yes: BPH Infectious Disease: No: AIDS, C-Diff, Herpes Zoster, HIV, MRSA, STD's, Tuberculosis, VREF, Other Musculoskeletal: No: Bursitis, Chronic low back pain, Hemiparesis, Hemiplegia, Osteoarthritis, Paraplegia, Other Endocrine: No: [place]'s Disease, Spreckels's Disease, Diabetes Insipidus, Diabetes Mellitus, Hyperparathyroidism, Hyperthyroidism, Hypothyroidism, Osteopenia, SIADH, Other - Past Surgical History Past Surgical History: Yes: Joint Replacement (Hip), Permanent Pacemaker - Alcohol/Substance Use Hx Alcohol Use: No - Smoking History Smoking history: Former smoker Have you smoked in the past 12 months: No If you are a former smoker, when did you quit?: 1970 Home Medications - Allergies Allergies/Adverse Reactions: Allergies Allergy/AdvReac Type Severity Reaction Status Date / Time Penicillins Allergy Verified 04/03/16 16:42 - Home Medications Home Medications: Ambulatory Orders Atenolol [Tenormin -] 25 mg PO HS 04/03/16 Finasteride [Proscar] 5 mg PO DAILY 04/03/16 Losartan Potassium [Cozaar -] 50 mg PO BID 04/03/16 Pantoprazole Sodium [Protonix -] 40 mg PO HS 04/03/16 Tadalafil [Cialis] 2.5 mg PO DAILY 04/03/16 Tamsulosin HCl [Flomax] 0.4 mg PO BID 04/03/16 Warfarin Na [Coumadin] 5 mg PO DAILY 04/03/16 Atenolol 37.5 mg PO DAILY 04/04/16 Diltiazem Cd [Cardizem Cd -] 240 mg PO HS 04/04/16 Family Disease History - Family Disease History Family History: Unremarkable Review of Systems - Review of Systems Constitutional: reports: No Symptoms Eyes: reports: No Symptoms HENT: reports: Other (as HPI) Neck: reports: No Symptoms Cardiovascular: reports: No Symptoms Respiratory: reports: No Symptoms Gastrointestinal: reports: Melena Genitourinary: reports: Frequency Musculoskeletal: reports: Extremity Pain, Joint Pain Integumentary: reports: Erythema Neurological: reports: Dizziness Endocrine: reports: No Symptoms Hematology/Lymphatic: reports: Easily Bruised Physical Exam-GI Vital Signs: Vital Signs Temperature 97.9 F 04/04/16 17:42 Pulse Rate 110 H 04/04/16 17:42 Respiratory Rate 18 04/04/16 21:00 Blood Pressure 143/104 04/04/16 17:42 O2 Sat by Pulse Oximetry (%) 100 04/04/16 21:00 Constitutional: Yes: Well Nourished Eyes: Yes: Other (conjunctivitis r eye) HENT: Yes: WNL Neck: Yes: WNL Cardiovascular: Yes: Pulse Irregular Respiratory: Yes: WNL Gastrointestinal Inspection: Yes: WNL ...Auscultate: Yes: Normoactive Bowel Sounds ...Palpate: Yes: Soft ...Rectal Exam: Yes: Guaiac Positive Genitourinary: Yes: WNL Musculoskeletal: Yes: WNL Extremities: Yes: WNL Labs: CBC, BMP 04/04/16 21:47 04/04/16 06:20 INR, PTT INR 4.19 (0.82-1.09) H* 04/04/16 15:00 Problem List - Problems (1) Epistaxis Assessment/Plan: By history there is no indication that this is any but a nosebleed and that the melena is some the swaloowing of blood. Suggest lowering inr and gi prophylaxsis. Code(s): R04.0 - EPISTAXIS (2) Anticoagulation goal of inr 3.0 to 4.0 Code(s): Z51.81 - ENCOUNTER FOR THERAPEUTIC DRUG LEVEL MONITORING Z79.01 - WILDLIFE CONSERVATIONIST (CURRENT) USE OF ANTICOAGULANTS
[2016-04-05] MEDS: CEPHALEXIN MONOHYDRATE 500 MG CAPSULE (UD) PO SCH ×2 (05:44→13:31)
[2016-04-05 06:47] VITALS: TEMP 98.4
[2016-04-05] MEDS ORDERED: TAMSULOSIN HCL 0.4 MG CAP.ER.24H (FP) PO SCH (08:30)
--- NOTE | 2016-04-05 08:46 | MSN ---
Progress Note (SOAP) - Subjective Chief Complaint: Nose bleed - Current Medications Current Medications: Active Medications Atenolol (Tenormin -) 25 mg PO DAILY [facility] Last Admin: 04/04/16 11:07 Dose: 25 mg Cephalexin HCl (Keflex -) 500 mg PO TID [facility] Stop: 04/05/16 22:01 Last Admin: 04/05/16 05:44 Dose: 500 mg Diltiazem HCl (Cardizem Cd -) 240 mg PO DAILY [facility] Finasteride (Proscar -) 5 mg PO DAILY [facility] Last Admin: 04/04/16 11:06 Dose: 5 mg Vancomycin HCl (Vancomycin (Pre-Docked)) 250 mls @ 250 mls/hr IVPB DAILY [facility] Sodium Chloride (Normal Saline -) 1,000 mls @ 42 mls/hr IV ASDIR [facility] Last Admin: 04/04/16 04:29 Dose: 42 mls/hr Losartan Potassium (Cozaar -) 50 mg PO DAILY [facility] Last Admin: 04/04/16 11:06 Dose: 50 mg Non-Formulary Medication (Tadalafil [Cialis]) 2.5 mg PO DAILY [facility] Ondansetron HCl (Zofran Injection) 4 mg IVPB Q4H PRN PRN Reason: NAUSEA AND/OR VOMITING Tamsulosin HCl (Flomax -) 0.4 mg PO DAILY@0830 [facility] Last Admin: 04/04/16 12:34 Dose: 0.4 mg - Objective Vital Signs: Vital Signs Temperature 98.4 F 04/05/16 06:00 Pulse Rate 116 H 04/05/16 06:00 Respiratory Rate 18 04/05/16 06:00 Blood Pressure 179/97 04/05/16 06:00 O2 Sat by Pulse Oximetry (%) 100 04/04/16 21:00 Constitutional: Yes: Well Nourished, No Distress, Calm Eyes: Yes: WNL, Conjunctiva Clear (Right eye red, left conjunctiva clear ), EOM Intact HENT: Yes: WNL, Atraumatic, Normocephalic Cardiovascular: Yes: Pulse Irregular, S1, S2 Respiratory: Yes: WNL, Regular, CTA Bilaterally Gastrointestinal: Yes: WNL, Normal Bowel Sounds, Soft, Tenderness (LRQ but he says that is normal) Neurological: Yes: WNL, Alert, Oriented, Cran Nerves II-XII Intact, Pre- Existing Deficit, Unsteady Gait Psychiatric: Yes: WNL, Alert, Oriented Labs Lab Results: CBC, BMP 04/04/16 21:47 04/04/16 06:20 Assessment/Plan 85 year old male with significant past medical history of HTN, atrial fibrillation and BPH presented to the ED via EMS with the complaints of nose bleed since Friday that has been stopped. Epistaxis -H/H dropped from 14.5/42.9----->11-----> 9.8/ 28.8 -In the ED rhino rockets placed -Patient admitted in Med-surg -NPO to rule out GI bleed -FOBT positive -GI consulted-No indcation for GI bleed -IV NS @ 42mls/hr -continue IV Protonix 40mg Daily -Type and screen -CBC every 6 hours -Hold Coumadin -INR ordered -Zofran PRN for nausea -Keflex 500 mg PO TID as per ID S/P fall: -CT head, no acute bleeding Atrial fibrillation-rate controlled -Warfarin on hold -Continue diltiazem Hypertension -Continue home meds FEN -IV NS @ 42mls/hr -Electrolytes to be repeated in the am -NPO DVT Prophylaxis -On SCD's GI PPX -On Protonix Disposition Admission to med surg
[2016-04-05] MEDS: ATENOLOL 25 MG TABLET (FP) PO SCH (09:31)
[2016-04-05] MEDS: LOSARTAN POTASSIUM 50 MG TABLET (FP) PO SCH (09:31)
[2016-04-05] MEDS: FINASTERIDE 5 MG TABLET (FP) PO SCH (09:31)
[2016-04-05] MEDS: TAMSULOSIN HCL 0.4 MG CAP.ER.24H (FP) PO SCH (09:31)
[2016-04-05] MEDS: SODIUM CHLORIDE 1,000 ML IV SCH (09:31)
[2016-04-05 11:18] LABS: BASOPHIL 0.1 % (0-2.0); EOSINOPHIL 0.3 % (0-4.5); MCH 32.7 pg (25.7-33.7); MEAN CELL VOLUME 96.1 fl (80-96); MEAN PLT VOLUME 9.3 fl (7.5-11.1); PLATELET COUNT 131 K/MM3 (134-434); RDW 13.8 % (11.9-15.9); WHITE BLOOD COUNT 9.7 K/mm3 (4.0-10.0)
[2016-04-05 11:54] LABS: INR 2.88 (0.82-1.09); PROTHROMBIN TIME (PATIENT) 32.4 SEC (9.98-11.88)
[2016-04-05 12:11] VITALS: BP 140/81; PULSE 96
--- NOTE | 2016-04-05 12:36 | DS ---
Physical Exam: SUBJECTIVE: Patient seen and examined Patient is comfortable, no further nasal bleed, no shortness of breath, no nausea or vomiting. INR is 2.88 OBJECTIVE: Vital Signs Temperature 98.4 F 04/05/16 08:00 Pulse Rate 96 H 04/05/16 08:00 Respiratory Rate 18 04/05/16 09:00 Blood Pressure 140/81 04/05/16 08:00 O2 Sat by Pulse Oximetry (%) 100 04/05/16 09:00 GENERAL: The patient is awake, alert, and fully oriented, in no acute distress. HEAD: Normal with no signs of trauma. EYES: PERRL, extraocular movements intact, right eye positive for blood shot. left eye conjunctiva clear. ENT: Ears normal, nares patent, oropharynx clear without exudates, moist mucous membranes. NECK: Trachea midline, full range of motion, supple. LUNGS: Breath sounds equal, clear to auscultation bilaterally, no wheezes, no crackles, no accessory muscle use. HEART: irregularly irregular with rate of 96 today , S1, S2 positive,no rub or gallop. ABDOMEN: Soft, nontender, nondistended, normoactive bowel sounds, no hepatosplenomegaly, no masses. EXTREMITIES: 2+ pulses, warm, well-perfused, no edema. Right shoulder large bruise due to his fall NEUROLOGICAL: Cranial nerves II through XII grossly intact. Normal speech. PSYCH: Normal mood, normal affect. SKIN: Warm, dry, normal turgor, no rashes or lesions noted LABS CBCD WBC 9.7 K/mm3 (4.0-10.0) 04/05/16 10:15 RBC 3.21 M/mm3 (4.00-5.60) L 04/05/16 10:15 Hgb 10.5 GM/dL (11.7-16.9) L 04/05/16 10:15 Hct 30.8 % (35.4-49) L 04/05/16 10:15 MCV 96.1 fl (80-96) H 04/05/16 10:15 MCHC 34.0 g/dl (32.0-35.9) 04/05/16 10:15 RDW 13.8 % (11.9-15.9) 04/05/16 10:15 Plt Count 131 K/MM3 (134-434) L 04/05/16 10:15 MPV 9.3 fl (7.5-11.1) 04/05/16 10:15 CMP Sodium 143 mmol/L (136-145) 04/04/16 06:20 Potassium 4.1 mmol/L (3.5-5.1) 04/04/16 06:20 Chloride 114 mmol/L (98-107) H 04/04/16 06:20 Carbon Dioxide 21 mmol/L (21-32) D 04/04/16 06:20 Anion Gap 8 (8-16) 04/04/16 06:20 BUN 41 mg/dL (7-18) H D 04/04/16 06:20 Creatinine 0.9 mg/dL (0.7-1.3) D 04/04/16 06:20 Creat Clearance w eGFR > 60 (>60) 04/04/16 06:20 Random Glucose 90 mg/dL (74-106) 04/04/16 06:20 Calcium 8.3 mg/dL (8.5-10.1) L 04/04/16 06:20 Total Bilirubin 0.7 mg/dL (0.2-1.0) 04/04/16 06:20 AST 20 U/L (15-37) D 04/04/16 06:20 ALT 23 U/L (12-78) D 04/04/16 06:20 Alkaline Phosphatase 62 U/L (45-117) D 04/04/16 06:20 Total Protein 5.2 g/dl (6.4-8.2) L D 04/04/16 06:20 Albumin 3.1 g/dl (3.4-5.0) L D 04/04/16 06:20 CARDIAC ENZYMES Creatine Kinase 101 IU/L (39-308) 04/03/16 20:25 Troponin I < 0.02 ng/ml (0.00-0.05) 04/03/16 20:25 Current Medications Generic Name Dose Route Start Last Admin Trade Name Freq PRN Reason Stop Dose Admin Atenolol 25 mg 04/04/16 10:00 04/05/16 09:31 Tenormin - PO 25 mg DAILY MARILYN Administration Cephalexin HCl 500 mg 04/04/16 10:30 04/05/16 05:44 Keflex - PO 04/05/16 22:01 500 mg TID MARILYN Administration Diltiazem HCl 240 mg 04/05/16 10:00 04/05/16 09:31 Cardizem Cd - PO 240 mg DAILY MARILYN Administration Finasteride 5 mg 04/04/16 10:00 04/05/16 09:31 Proscar - PO 5 mg DAILY MARILYN Administration Vancomycin HCl 250 mls @ 250 mls/hr 04/04/16 10:00 Vancomycin (Pre-Docked) IVPB DAILY MARILYN Losartan Potassium 50 mg 04/04/16 10:00 04/05/16 09:31 Cozaar - PO 50 mg DAILY MARILYN Administration Non-Formulary Medication 2.5 mg 04/04/16 10:00 Tadalafil [Cialis] PO DAILY [facility] Ondansetron HCl 4 mg 04/03/16 23:44 Zofran Injection IVPB Q4H PRN NAUSEA AND/OR VOMITING Tamsulosin HCl 0.4 mg 04/04/16 11:45 04/05/16 09:31 Flomax - PO 0.4 mg DAILY@0830 MARILYN Administration Medication Instructions Recorded Atenolol [Tenormin -] 25 mg PO HS 04/03/16 Finasteride [Proscar] 5 mg PO DAILY 04/03/16 Losartan Potassium [Cozaar -] 50 mg PO BID 04/03/16 Pantoprazole Sodium [Protonix -] 40 mg PO HS 04/03/16 Tadalafil [Cialis] 2.5 mg PO DAILY 04/03/16 Tamsulosin HCl [Flomax] 0.4 mg PO BID 04/03/16 Warfarin Na [Coumadin] 5 mg PO DAILY 04/03/16 Atenolol 37.5 mg PO DAILY 04/04/16 Diltiazem Cd [Cardizem Cd -] 240 mg PO HS 04/04/16 Cephalexin Monohydrate [Keflex -] 500 mg PO TID #6 capsule 04/05/16 S/P fall:CT head, no acute bleeding HOSPITAL COURSE: Date of Admission:04/03/16 Date of Discharge: 04/05/16 85 year old male with significant past medical history of HTN, atrial fibrillation presented to the ED via EMS with the complaints of nose bleed since yesterday afternoon. # s/p Acute Epistaxis while driving. ENT consult Dr.Tom Otero , patient will follow with Dr.Tom Otero as an outpatient. -H/H dropped from 14.5/42.9----->11--10.5 today X ray of right shoulder and humerus that was done as an outpatient and as per patient : No fracture as per patient # Anemia with Tarry stool most likely due to swallowing his own blood. GI consult as per GI due to his epistaxis Atrial fibrillation-rate controlled on Cardizam continue . INR 2.88 today and will contine with 2 days of 4mg then continue with 5mg discussed with agrees with the plan #[phone]. Also suggested that he follows up with the PMD next week to check on his INR. 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 #Hypertension Continue home meds DVT Prophylaxis: warfarin supratherapeutic INR GI PPX On Protonix Minutes to complete discharge: 45 Discharge Summary Reason For Visit: EPISTAXIS Current Active Problems Anticoagulation goal of inr 3.0 to 4.0 (Acute) Epistaxis (Acute) - Instructions Referrals: Oleg Perez [Primary Care Provider] - - Home Medications Comprehensive Discharge Medication List: Ambulatory Orders Atenolol [Tenormin -] 25 mg PO HS 04/03/16 Finasteride [Proscar] 5 mg PO DAILY 04/03/16 Losartan Potassium [Cozaar -] 50 mg PO BID 04/03/16 Pantoprazole Sodium [Protonix -] 40 mg PO HS 04/03/16 Tadalafil [Cialis] 2.5 mg PO DAILY 04/03/16 Tamsulosin HCl [Flomax] 0.4 mg PO BID 04/03/16 Warfarin Na [Coumadin] 5 mg PO DAILY 04/03/16 Atenolol 37.5 mg PO DAILY 04/04/16 Diltiazem Cd [Cardizem Cd -] 240 mg PO HS 04/04/16 Cephalexin Monohydrate [Keflex -] 500 mg PO TID #6 capsule 04/05/16 This patient is new to me today: No Emergency Visit: Yes ED Registration Date: 04/03/16 Care time: The patient presented to the Emergency Department on the above date and was hospitalized for further evaluation of their emergent condition. Critical Care patient: No - Discharge Referral Referred to [facility] No
[2016-04-05] MEDS: TADALAFIL 2.5 MG PO SCH (14:47)
[2016-04-05] MEDS: VANCOMYCIN 1 GRAM (PRE-DOCKED) 250 ML IVPB SCH (14:48)
[2016-04-05] MEDS ORDERED: WARFARIN NA 2 MG TABLET (UD) PO SCH ×2 (18:00)
== END 2016-04-05 14:19 | disposition home or self-care (01) | DRG 151 ==
LOC: JER 16:28 → JERBED 22:24 → OBSVTOIN 23:02 → J8W 04-04 16:55
PROVIDERS: ADMIT Internal Medicine; ATTEND Internal Medicine
PROC: 2Y41X5Z Packing of Nasal Region using Packing Material (ICD-10-PCS; principal; 2016-04-03)
DX: R04.0 Epistaxis (principal); I10 Essential (primary) hypertension; I48.91 Unspecified atrial fibrillation; Z86.73 Personal history of transient ischemic attack (TIA), and cerebral infarction without residual deficits; N40.0 Benign prostatic hyperplasia without lower urinary tract symptoms; Z79.01 Long term (current) use of anticoagulants; Z88.0 Allergy status to penicillin; Z87.891 Personal history of nicotine dependence; Z95.0 Presence of cardiac pacemaker; D64.9 Anemia, unspecified; S40.021A Contusion of right upper arm, initial encounter; W19.XXXA Unspecified fall, initial encounter; Y93.89 Activity, other specified; Y92.89 Other specified places as the place of occurrence of the external cause; Y99.8 Other external cause status
CPT/HCPCS: 36415; 70450-TC; 71010-TC; 80053; 82272; 82550; 84484; 85025; 85027; 85610; 85730; 86850; 86900; 86901; 93005; 93010; 99284-25; G0378